=== PATIENT | female | born 1960 | race Caucasian/White ===

== ENCOUNTER 2017-07-16 14:59 | Inpatient (IN) | payer OTHER ==
[~2017-07-16] VITALS: Ht 160 cm; Wt 65.8 kg
[~2017-07-16 14:59] MED LIST: LORAZEPAM0.5 MG PO; METHIMAZOLE5 MG PO; NAPROXEN500 MG PO; TEMAZEPAM30 MG PO
[2017-07-16 15:56] LABS: BASOPHIL % 0.3 % (0-2); PLATELET COUNT 272 x10^3mcL (130-400)
[2017-07-16 16:03] LABS: RED CELL DISTRIBUTION WIDTH 14.9 % (11.5-14.5)
[2017-07-16 16:15] LABS: CALCIUM 8.3 mg/dL (8.5-10.1); CARBON DIOXIDE 24.6 mmol/L (21-32); CHLORIDE SERUM 108 mmol/L (98-107); CREATININE SERUM 0.4 mg/dL (0.6-1.0); GFR1 > 60 mL/min; GLUCOSE SERUM 98 mg/dL (74-106); POTASSIUM SERUM 3.8 mmol/L (3.5-5.1); SODIUM SERUM 147 mmol/L (136-145)
[2017-07-16 16:18] LABS: ALBUMIN 3.9 g/dL (3.4-5.0); ALKALINE PHOSPHATASE 111 U/L (46-116); ALT/SGPT 43 U/L (14-59); AMYLASE 56 U/L (25-115); AST/SGOT 30 U/L (15-37); BILIRUBIN TOTAL 0.28 mg/dL (0.20-1.00); LIPASE 224 IU/L (73-393); MAGNESIUM 2.5 mg/dL (1.8-2.4); TOTAL PROTEIN, SERUM 7.6 g/dL (6.4-8.2)
[2017-07-16 16:19] LABS: CHOLESTEROL 226 mg/dL (<200); HDL CHOLESTEROL 98 mg/dL (40-60)
[2017-07-16 16:37] LABS: AMPHETAMINE QUAL UR NONE DETECTED (NEG <=1000)
[2017-07-16 16:47] LABS: microscopic required? NO
[2017-07-16] MEDS ORDERED: ROBAXIN500 MG PO (17:27)
[2017-07-16] MEDS ORDERED: OMEPRAZOLE40 M1 PO (17:27)
[2017-07-16] MEDS ORDERED: LORAZEPAM1 MG PO (17:28)
[2017-07-16 17:59] LABS: urine erythrocyte NEGATIVE (NEGATIVE)
[2017-07-16 18:09] LABS: PHOSPHOROUS 3.8 mg/dL (2.5-4.9)
[2017-07-16 18:10] LABS: CHOLESTEROL/HDL RATIO 2.3
[2017-07-16 18:17] LABS: FREE T4 1.3 ng/dL (0.76-1.46); FREE THYROXINE INDEX 3.3 ug/dL (1.4-4.5)
[2017-07-16 18:19] VITALS: BP 131/68
[2017-07-16 18:19] LABS: T3 TOTAL 1.17 ng/mL
[2017-07-16 18:25] VITALS: Ht 160 cm; Wt 65.8 kg
== END 2017-07-16 19:26 | disposition left against medical advice (07) | DRG 562 ==
LOC: EDSEX 14:59 → ED 14:59 → DU 17:16
PROVIDERS: Emergency Medicine; Family Medicine
DX: S62.102A Fracture of unspecified carpal bone, left wrist, initial encounter for closed fracture (principal); G92 Toxic encephalopathy; E87.0 Hyperosmolality and hypernatremia; F10.229 Alcohol dependence with intoxication, unspecified; M19.90 Unspecified osteoarthritis, unspecified site; F41.9 Anxiety disorder, unspecified; G89.29 Other chronic pain; E87.8 Other disorders of electrolyte and fluid balance, not elsewhere classified; Z53.21 Procedure and treatment not carried out due to patient leaving prior to being seen by health care provider; E78.5 Hyperlipidemia, unspecified; E83.41 Hypermagnesemia; E86.0 Dehydration; M54.5 Low back pain; F32.9 Major depressive disorder, single episode, unspecified; G47.00 Insomnia, unspecified; Z82.49 Family history of ischemic heart disease and other diseases of the circulatory system
CPT/HCPCS: 83880; 84439; G0480; J3411; J3475; J3490; J7030

== ENCOUNTER 2018-03-09 18:31 | Emergency (ER) | payer OTHER ==
[~2018-03-09] VITALS: Ht 158.8 cm; Wt 59.0 kg
[~2018-03-09 18:31] MED LIST changes: +LORAZEPAM1 MG PO; +OMEPRAZOLE40 M1 PO; +ROBAXIN500 MG PO
[2018-03-09 18:50] VITALS: Ht 158.8 cm; Wt 59.0 kg
[2018-03-09 19:14] LABS: BASOPHIL % 0.3 % (0-2); PLATELET COUNT 326 x10^3mcL (130-400); RED CELL DISTRIBUTION WIDTH 12.8 % (11.5-14.5)
[2018-03-09 19:21] LABS: CARBON DIOXIDE 24.5 mmol/L (21-32); CHLORIDE SERUM 101 mmol/L (98-107); CREATININE SERUM 0.8 mg/dL (0.6-1.0); GFR1 > 60 mL/min; GLUCOSE SERUM 90 mg/dL (74-106); POTASSIUM SERUM 3.8 mmol/L (3.5-5.1); SODIUM SERUM 142 mmol/L (136-145)
[2018-03-09 19:25] LABS: ALKALINE PHOSPHATASE 115 U/L (46-116); ALT/SGPT 41 U/L (14-59); AST/SGOT 33 U/L (15-37); BILIRUBIN TOTAL 0.3 mg/dL (0.20-1.00); TOTAL PROTEIN, SERUM 7.8 g/dL (6.4-8.2)
[2018-03-09 20:12] LABS: UA SPECIFIC GRAVITY >=1.030 (1.005-1.035); microscopic required? YES; urine erythrocyte TRACE (NEGATIVE)
[2018-03-09 20:40] LABS: AMPHETAMINE QUAL UR NONE DETECTED (See below)
[2018-03-10 09:38] VITALS: BP 128/81
== END 2018-03-10 09:38 | disposition short-term general hospital (02) ==
LOC: ED 18:31
PROVIDERS: Specialist
DX: F10.129 Alcohol abuse with intoxication, unspecified (principal); F41.9 Anxiety disorder, unspecified; R45.851 Suicidal ideations; Z90.721 Acquired absence of ovaries, unilateral; M19.90 Unspecified osteoarthritis, unspecified site
CPT/HCPCS: 36415; G0480

== ENCOUNTER 2019-12-16 08:13 | Emergency (ER) | payer OTHER ==
[~2019-12-16] VITALS: Ht 160 cm; Wt 61.7 kg
[2019-12-16 08:20] VITALS: Ht 160 cm; Wt 61.7 kg
[2019-12-16 09:06] LABS: BASOPHIL % 0.3 % (0-2); PLATELET COUNT 233 x10^3mcL (130-400); RED CELL DISTRIBUTION WIDTH 12.9 % (11.5-14.5)
[2019-12-16 09:16] LABS: CALCIUM 8.4 mg/dL (8.5-10.1); CARBON DIOXIDE 32.3 mmol/L (21-32); CHLORIDE SERUM 97 mmol/L (98-107); CREATININE SERUM 0.7 mg/dL (0.6-1.0); GFR1 > 60 mL/min; GLUCOSE SERUM 129 mg/dL (74-106); POTASSIUM SERUM 3.7 mmol/L (3.5-5.1); SODIUM SERUM 135 mmol/L (136-145)
[2019-12-16 09:21] LABS: ALBUMIN 3.7 g/dL (3.4-5.0); ALKALINE PHOSPHATASE 83 U/L (46-116); ALT/SGPT 50 U/L (14-59); AST/SGOT 49 U/L (15-37); BILIRUBIN TOTAL 0.8 mg/dL (0.20-1.00); TOTAL PROTEIN, SERUM 6.7 g/dL (6.4-8.2)
[2019-12-16 09:42] VITALS: BP 131/65
[2019-12-16 10:08] LABS: microscopic required? NO
[2019-12-16 10:53] LABS: UA SPECIFIC GRAVITY <=1.005 (1.005-1.035); urine erythrocyte NEGATIVE (NEGATIVE)
== END 2019-12-16 11:28 | disposition home or self-care (01) ==
LOC: ED 08:13
PROVIDERS: Emergency Medicine
DX: F41.9 Anxiety disorder, unspecified (principal); R07.89 Other chest pain; R19.7 Diarrhea, unspecified
CPT/HCPCS: J2060; J7030; Q0092